=== PATIENT | female | born 1990 | race Two or more races ===

== ENCOUNTER → 2021-04-20 | Emergency (ER) | payer OTHER ==
[~2021-04-20] VITALS: Ht 157.5 cm; Wt 53.5 kg
[~2021-04-20] MED LIST: SORBUTUSS LIQU473 ML PO; XYZAL5 MG PO
== END | disposition home or self-care (01) ==
LOC: ER 01:53
DX: T40.7X5A Adverse effect of cannabis (derivatives), initial encounter (principal); R10.13 Epigastric pain

== ENCOUNTER 2022-01-14 12:03 | Emergency (ER) | payer OTHER ==
[~2022-01-14] VITALS: Ht 157.5 cm; Wt 54.4 kg
== END 2022-01-14 17:58 | disposition home or self-care (01) ==
LOC: ER 12:03
DX: E86.0 Dehydration (principal); B34.8 Other viral infections of unspecified site